=== PATIENT | female | born 1995 | race Caucasian/White ===

== ENCOUNTER 2016-11-06 18:31 | Emergency (ER) | payer BC, OTHER ==
[2016-11-06 18:39] VITALS: RESP 16
--- NOTE | 2016-11-06 19:29 | EDPHY ---
H & P Time Seen by Provider: 11/06/16 18:50 HPI/ROS: CHIEF COMPLAINT: Left lower extremity pain HISTORY OF PRESENT ILLNESS: 21-year-old female presents with left lower extremity pain. Onset of erythema and pain over the medial aspect of the left ankle area yesterday, gradually increasing since then. She had an ORIF of the left tib-fib 10 years ago and the hardware was removed 2 years ago, except for 1 screw. She has had no problems with the left ankle or lower leg until yesterday when she developed pain and erythema. Associated with subjective fever. No pain with ankle range of motion. No known injury. 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 REVIEW OF SYSTEMS: Constitutional: no chills Eyes: No visual changes ENT: No sore throat Respiratory: No cough, no shortness of breath Cardiac: No chest pain Gastrointestinal: No nausea, no vomiting, no abdominal pain Genitourinary: no dysuria Neurological: No headache, no numbness, no weakness Psychiatric: No depression Past Medical/Surgical History: Left tib-fib fracture with repair Social History: [employer] student, therapeutic recreation assistant Smoking Status: Never smoked Physical Exam: General Appearance: Alert, no distress Eyes: Pupils equal and round, no conjunctival pallor ENT, Mouth: Mucous membranes moist Neck: Normal inspection Respiratory: Lungs are clear to auscultation Cardiovascular: Regular rate and rhythm Gastrointestinal: Abdomen is soft and nontender Neurological: A&O, nonfocal, normal gait Skin: Warm and dry Extremities: left lower extremity-there is an area of erythema, warmth and tenderness just above the medial aspect of the left ankle, approximately 8 cm x 3 cm in diameter; no pain with ankle range of motion; no calf swelling or tenderness Psychiatric: Mood and affect normal Constitutional: Initial Vital Signs Temperature (C) 37.4 C 11/06/16 18:35 Heart Rate 112 H 11/06/16 18:35 Respiratory Rate 16 11/06/16 18:35 Blood Pressure 140/75 H 11/06/16 18:35 O2 Sat (%) 96 11/06/16 18:35 O2 Delivery Mode Room Air Allergies/Adverse Reactions: No Known Allergies Allergy (Verified 11/07/16 16:04) Home Medications: Medication Instructions Recorded Cephalexin [Keflex (*)] 500 mg PO TID #40 cap 11/06/16 Medical Decision Making ED Course/Re-evaluation: This pt presents with cellulitis of the LLE. Given remote h/o surgical repair LLE, I doubt that this infection is secondary to osteomyelitis or other deep infection. However, if she continues to worsen despite abx, could consider MRI , given retained screw. Keflex 500 mg orally given. Warning signs discussed. Will avoid weight-bearing and will elevate leg whenever possible. Differential Diagnosis: includes though not limited to osteomyelitis, abscess, necrotizing fasciitis, DVT. - Data Points Medications Given: Discontinued Medications Cephalexin HCl (Keflex) 500 mg PO EDNOW ONE PRN Reason: Protocol Stop: 11/06/16 19:34 Last Admin: 11/06/16 19:38 Dose: 500 mg Departure - Departure Disposition: Home, Routine, Self-Care Clinical Impression: Cellulitis Qualifiers: Qualifier Code: (L03.116) Cellulitis of left lower limb Condition: Good Instructions: Cellulitis (ED) Additional Instructions: Ibuprofen 600 mg 3 times daily while the pain persists. Referrals: [facility] [Outside] - As per Instructions Prescriptions: Cephalexin [Keflex (*)] 500 mg PO TID #40 cap
[2016-11-06] MEDS ORDERED: CEPHALEXIN 500 MG CAP PO ONE (19:33)
[2016-11-06 19:40] VITALS: BP 132/67; PULSE 91; TEMP 99; O2SAT 97
== END 2016-11-06 19:40 | disposition home or self-care (01) ==
DX: L03.116 Cellulitis of left lower limb (principal)

== ENCOUNTER 2016-11-07 15:55 | Emergency (ER) | payer BC, OTHER ==
[2016-11-07 16:07] VITALS: BP 106/75; PULSE 79; RESP 18; TEMP 98.4; O2SAT 96
--- NOTE | 2016-11-07 19:09 | EDPHY ---
H & P Time Seen by Provider: 11/07/16 18:43 HPI/ROS: Chief complaint. Foot infection HPI. 21-year-old female with infection of the left foot. She was seen yesterday and started on antibiotics. Despite the antibiotics for 24 hours the redness has increased in intensity and spread beyond the margins from last night. Maybe a little bit of fever. 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 There was no evidence of deep tissue infection or bone infection. She did have an ORIF of her left tibia 10 years ago with metal out 2 years ago. She is unaware of any injury though it began after hard work out. She did have a blister on the bottom of her left great toe ROS Constitutional. Slight fever Eyes. no problems with vision ENT. no sore throat, no nasal drainage Cardiovascular. no chest pain Respiratory. no shortness of breath, no cough Abdominal. no abdominal pain, no nausea/vomiting, no diarrhea . no problems urinating MS. no calf pain/swelling, no neck/back pain, no joint pain Skin. Redness to medial aspect of the left ankle Lymph. no swollen glands Neuro. no headache, no dizziness, no difficulty walking or with speech Past Medical/Surgical History: Dermoid cyst, tib-fib fracture Social History: Single nonsmoker no alcohol Smoking Status: Never smoked Physical Exam: General Appearance: Alert well-developed female mild distress vital signs are stable. She is afebrile Eyes: Pupils equal and round no pallor or injection. ENT, Mouth: Mucous membranes are moist. Respiratory: There are no retractions, lungs are clear to auscultation. Cardiovascular: Regular rate and rhythm. Gastrointestinal: Abdomen is soft and nontender, no masses, bowel sounds normal. Neurological: Awake and alert, sensory and motor exams grossly normal. Skin: Erythema to the medial left ankle. It is spreading beyond the margins. It appears that she may be developing early lymphangitis. Musculoskeletal: Neck is supple nontender. Extremities symmetrical, full range of motion. Psychiatric: Patient is oriented X 3, there is no agitation. Constitutional: Initial Vital Signs Temperature (C) 36.9 C 11/07/16 16:05 Heart Rate 79 11/07/16 16:05 Respiratory Rate 18 11/07/16 16:05 Blood Pressure 106/75 11/07/16 16:05 O2 Sat (%) 96 11/07/16 16:05 O2 Delivery Mode Room Air Allergies/Adverse Reactions: No Known Allergies Allergy (Verified 11/07/16 16:04) Home Medications: Medication Instructions Recorded Cephalexin [Keflex (*)] 500 mg PO TID #40 cap 11/06/16 Medical Decision Making Procedures: IV normal saline. IV Ancef ED Course/Re-evaluation: I consulted and discussed case with Dr. Gudino, infectious Disease. He recommends continuing the cephalexin. He also recommends an IV dose of Rocephin. He will see the patient in the office tomorrow Re-evaluation at 8:30 p.m. patient is stable. She and I discussed laboratory evaluation, treatment plan including importance of follow-up tomorrow. Patient expresses understanding and agreement Differential Diagnosis: Cellulitis, lymphangitis, abscess. Patient has an elevated white blood cell count including elevated ESR and CRP. She had a negative MRI today so threshold for osteomyelitis or abscess is low - Data Points Laboratory Results: Laboratory Results 11/07/16 19:30 11/07/16 19:30 11/07/16 19:30 WBC 12.75 H 10^3/uL (3.80-9.50) RBC 4.49 10^6/uL (4.18-5.33) Hgb 14.9 g/dL (12.6-16.3) Hct 41.5 % (38.0-47.0) MCV 92.4 fL (81.5-99.8) MCH 33.2 pg (27.9-34.1) MCHC 35.9 g/dL (32.4-36.7) RDW 11.8 % (11.5-15.2) Plt Count 282 10^3/uL (150-400) MPV 9.9 fL (8.7-11.7) Neut % (Auto) 71.3 % (39.3-74.2) Lymph % (Auto) 18.7 % (15.0-45.0) Tift % (Auto) 9.1 % (4.5-13.0) Eos % (Auto) 0.2 L % (0.6-7.6) Baso % (Auto) 0.3 % (0.3-1.7) Nucleat RBC Rel Count 0.0 % (0.0-0.2) Absolute Neuts (auto) 9.09 H 10^3/uL (1.70-6.50) Absolute Lymphs (auto) 2.38 10^3/uL (1.00-3.00) Absolute Monos (auto) 1.16 H 10^3/uL (0.30-0.80) Absolute Eos (auto) 0.03 10^3/uL (0.03-0.40) Absolute Basos (auto) 0.04 10^3/uL (0.02-0.10) Absolute Nucleated RBC 0.00 10^3/uL (0-0.01) Immature Gran % 0.4 % (0.0-1.1) Immature Gran # 0.05 10^3/uL (0.00-0.10) ESR 23 H MM/HR (0-20) Sodium 141 mEq/L (134-144) Potassium 3.6 mEq/L (3.5-5.2) Chloride 104 mEq/L (97-110) Carbon Dioxide 21 L mEq/l (22-31) Anion Gap 16 mEq/L (8-16) BUN 15 mg/dL (7-23) Creatinine 0.7 mg/dL (0.6-1.0) Estimated GFR > 60 Glucose 83 mg/dL (70-100) Calcium 9.8 mg/dL (8.5-10.4) C-Reactive Protein 243.9 H mg/L (<10.0) Medications Given: Discontinued Medications Acetaminophen/Hydrocodone Bitart ([place] 5/325mg Prepack#6) 1 btl TAKEHOME EDNOW ONE Stop: 11/07/16 20:45 Last Admin: 11/07/16 20:53 Dose: 1 btl Cefazolin Sodium/Dextrose (Ancef 1 Gm (Premix)) 50 mls @ 200 mls/hr IV EDNOW ONE PRN Reason: Protocol Stop: 11/07/16 19:30 Last Admin: 11/07/16 19:20 Dose: 50 mls Ceftriaxone Sodium/Dextrose (Rocephin 1 Gm (Premix)) 50 mls @ 100 mls/hr IV EDNOW ONE PRN Reason: Protocol Stop: 11/07/16 19:52 Last Admin: 11/07/16 19:35 Dose: 50 mls Departure - Departure Disposition: Home, Routine, Self-Care Clinical Impression: Cellulitis Qualifiers: Site of cellulitis: extremity Site of cellulitis of extremity: lower extremity Laterality: left Qualifier Code: (L03.116) Cellulitis of left lower limb Condition: Good Instructions: Hydrocodone/Acetaminophen (By mouth), Cellulitis (ED) Additional Instructions: Keep foot elevated as much as possible. Begin cephalexin again tomorrow morning 4 times daily. Hydrocodone as well as Aleve for discomfort. Call Dr. Gudino's office tomorrow morning for appointment tomorrow with Infectious Disease physician [place]errals: [place],. [Primary Care Provider] - As per Instructions Jaime Gudino MD [Medical Doctor] - 1 day without fail
[2016-11-07 19:41] LABS: % IMMATURE GRANULYOCYTES 0.4 % (0.0-1.1); ABSOLUTE IMMATURE GRANULOCYTES 0.05 10^3/uL (0.00-0.10); ADD DIFF? NO; ADD MORPH? NO; ADD SCAN? NO; ATYPICAL LYMPHOCYTE FLAG 20 (0-99); FRAGMENT RBC FLAG 0 (0-99); HEMATOCRIT 41.5 % (38.0-47.0); HEMOGLOBIN 14.9 g/dL (12.6-16.3); LEFT SHIFT FLG 0 (0-99); LIPEMIA HEMOLYSIS FLAG 90 (0-99); MEAN CELL HEMOGLOBIN 33.2 pg (27.9-34.1); MEAN CELL HEMOGLOBIN CONCENTR. 35.9 g/dL (32.4-36.7); MEAN CELL VOLUME 92.4 fL (81.5-99.8); MEAN PLATELET VOLUME 9.9 fL (8.7-11.7); PLATELET CLUMPS FLAG 10 (0-99); PLATELET COUNT 282 10^3/uL (150-400); RED BLOOD CELL COUNT 4.49 10^6/uL (4.18-5.33); RED CELL DISTRIBUTION WIDTH 11.8 % (11.5-15.2)
[2016-11-07 19:55] LABS: SEDIMENTATION RATE 23 MM/HR (0-20)
[2016-11-07 20:10] LABS: ANION GAP 16 mEq/L (8-16); CALCIUM 9.8 mg/dL (8.5-10.4); CARBON DIOXIDE 21 mEq/l (22-31); CHLORIDE 104 mEq/L (97-110); CREATININE 0.7 mg/dL (0.6-1.0); GLOMERULAR FILTRATION RATE > 60; GLUCOSE 83 mg/dL (70-100); POTASSIUM 3.6 mEq/L (3.5-5.2); SODIUM 141 mEq/L (134-144)
[2016-11-07 20:32] LABS: C-REACTIVE PROTEIN 243.9 mg/L (<10.0)
[2016-11-07] MEDS ORDERED: HYDROCOD/APAP 5/325 PREPACK#6 BTL TAKEHOME ONE (20:44)
== END 2016-11-07 21:01 | disposition home or self-care (01) ==
DX: L03.116 Cellulitis of left lower limb (principal)
CPT/HCPCS: 96365; J0690; J0696